=== PATIENT | female | born 1970 | race Caucasian/White ===

== ENCOUNTER 2019-05-13 06:12 | Day surgery (SDC) | payer OTHER ==
[~2019-05-13] VITALS: Ht 167.6 cm; Wt 69.4 kg
[~2019-05-13 06:12] MED LIST: EMTR1TAB7 PO
[2019-05-13 07:32] VITALS: Ht 167.6 cm; Wt 69.4 kg
[2019-05-13 07:36] VITALS: BP 129/75; PULSE 62; RESP 16
[2019-05-13] MEDS ORDERED: BIKTARVY (07:38)
--- NOTE | 2019-05-13 07:39 | PREAC ---
Date/Time of Note Date/Time of Note DATE: 05/13/19 TIME: 07:38 Anesthesia Eval and Record Evaluation Time Pre-Procedure Interview DATE: 05/13/19 TIME: 07:38 Age 49 Sex female NPO: 8 hrs Preoperative diagnosis SCREENING COLONOSCOPY Planned procedure COLONOSCOPY Past Medical History Past Medical History: Includes Infection(s): HIV Surgery & Anesthesia Issues No known issue Meds Anticoagulation: No Beta Yessenia within 24 hr: No Reason Beta Yessenia not given: Pt. not on B-Yessenia Reported Medications [id number]-Tecbhggoj (Complera) 1 Each Tablet, 1 TAB PO DAILY, TAB 05/25/16 Meds reviewed: Yes Allergies Coded Allergies: No Known Allergy (Unverified , 05/25/16) Allergies Reviewed: Yes Labs/Studies Labs Reviewed: Reviewed by anesthesiologist test: N/A Pre-procedure Exam Airway: Adequate mouth opening, Adequate thyromental dist Mallampati: Mallampati II Teeth: Normal Lung: Normal Heart: Normal ASA Physical Status ASA physical status: 2 Emergency: None Planned Anesthetic General/MAC: MAC Planned Pain Management Parenteral pain med Pre-operative Attestations Prior to commencing anesthesia and surgery, the patient was re-evaluated, there was verification of: *The patient's identity *The results of appropriate recent lab work and preoperative vital signs *The above evaluation not changing prior to induction *Anesthetic plan, risk benefits, alternative and complications discussed with patient/family; questions answered; patient/family understands, accepts and wishes to proceed. Ramon Thompson M.D. May 13, 2019 07:39
[2019-05-13] MEDS ORDERED: PROPOFOL 40 ML ONE (07:41)
[2019-05-13] MEDS ORDERED: LIDOCAINE 100 MG SYRINGE ONE (07:41)
[2019-05-13] MEDS ORDERED: EPHEDrine 25 MG/5 ML SYG IV PRN (08:00)
[2019-05-13] MEDS ORDERED: FENTAnyl 50 MCG/ML VIAL IV PRN ×3 (08:00)
[2019-05-13] MEDS ORDERED: MIDAZOLAM 1 MG/ML 2 ML INJ IV PRN (08:00)
[2019-05-13] MEDS ORDERED: ALBUTEROL 0.083% (NEB) 2.5 MG/3 ML AMP HHN PRN (08:00)
[2019-05-13] MEDS ORDERED: HYDROmorphONE 1 MG/5 ML IV SYRINGE IV PRN ×3 (08:00)
[2019-05-13] MEDS ORDERED: ONDANSETRON 4 MG INJ IV PRN (08:00)
[2019-05-13] MEDS ORDERED: IPRATROPIUM (NEB) 0.5 MG/2.5 ML AMP HHN PRN (08:00)
[2019-05-13] MEDS ORDERED: MEPERIDINE 25 MG INJ IV PRN (08:00)
[2019-05-13] MEDS ORDERED: DIPHENHYDRAMINE 50 MG INJ IV PRN (08:00)
[2019-05-13] MEDS ORDERED: TRIMETHOBENZAMIDE 100 MG/ML VIAL IM PRN (08:00)
[2019-05-13] MEDS ORDERED: OXYCODONE/ACETAMINOPHEN (5/325) TAB PO PRN ×2 (08:00)
[2019-05-13] MEDS ORDERED: hydrALAzine 20 MG INJ IV PRN (08:00)
[2019-05-13] MEDS ORDERED: LABETALOL HCL 20MG INJ IV PRN (08:00)
[2019-05-13 08:38] VITALS: BP 121/71; PULSE 56; RESP 16
--- NOTE | 2019-05-13 09:11 | PAC ---
Date/Time of Note Date/Time of Note DATE: 05/13/19 TIME: 09:11 Post-Anesthesia Notes Post-Anesthesia Note Last documented vital signs HR 75 RR 14 BP 117/76 T 98 Activity: WNL Respiratory function: WNL Cardiovascular function: WNL Mental status: Baseline Pain reasonably controlled: Yes Hydration appropriate: Yes Nausea/Vomiting absent: Yes Ramon Thompson M.D. May 13, 2019 09:11
== END 2019-05-13 10:27 | disposition home or self-care (01) ==
LOC: GIL 06:12
PROVIDERS: ATTEND Internal Medicine Gastroenterology
DX: Z12.11 Encounter for screening for malignant neoplasm of colon (principal)
CPT/HCPCS: 45378; J2001; Z7610